=== PATIENT | female | born 1995 | race Caucasian/White ===

== ENCOUNTER → 2017-10-19 16:44 | Outpatient (CLI) | payer OTHER, SELFPAY ==
[2017-10-19 18:19] LABS: Progesterone Level 0.49 ng/mL (See Comment)
[2017-10-19 18:23] LABS: hCG Titer Quant., Serum < 1 mIU/mL (<9 non-preg)
[2017-10-19 20:38] LABS: Free T3 2.9 pg/mL (2.18-3.98); Luteinizing Hormone 10.9 mIU/mL; T4 Free Direct 1.08 ng/dL (0.76-1.46); Thyroid Stim Hormone (TSH) 0.51 uIU/mL (0.358-3.74)
== END ==
PROVIDERS: Family Provider Internal Medicine; PCP Internal Medicine; Visit Provider Internal Medicine
DX: N93.9 Abnormal uterine and vaginal bleeding, unspecified (principal)
CPT/HCPCS: 36415; 83001; 83002; 84144; 84439; 84443; 84481; 84702

== ENCOUNTER 2021-05-15 18:26 | Inpatient (IN) | payer OTHER, SELFPAY ==
[2021-05-15] VITALS (12 sets, daily range): BP systolic 128–146; BP diastolic 70–94; PULSE 79–94; TEMP 36.7–36.8; O2SAT 98; BMI 38.9
[2021-05-15 17:06] LABS: Hematocrit 33.4 % (37-47); Hemoglobin 11.6 g/dL (12.0-15.0); Mean Corp Hgb Conc 34.7 g/dL (32-36); Mean Corpuscular Hgb 29.9 pg (27.0-32.0); Mean Corpuscular Volume 86.1 fL (81-99); Mean Platelet Vol. 11.6 fl (6.2-12.0); Platelet Count 196 K/mm3 (150-450); RBC Distribution Width CV 12.8 % (11.6-14.6); RBC Distribution Width SD 39.5 fl (35.1-43.9); Red Blood Count 3.88 M/mm3 (4.2-5.4); White Blood Count 10.5 K/mm3 (4.4-11.0)
[2021-05-15 17:17] LABS: Protein:Creat Ratio 321 mg/g CRE (0-200)
[2021-05-15 17:36] LABS: AST(SGOT) 11 U/L (15-37); Alanine Aminotransfer ALT/SGPT 12 U/L (13-56); Creatinine, Serum 0.69 mg/dL (0.55-1.02); EST Glomerular Filtration Rate 109 mL/min (>60); Est Glom Filt Rate - Afr Amer 132 mL/min (>60); Estimated Creatinine Clearance 101.31 ml/min; Uric Acid 4.8 mg/dL (2.6-6.0)
--- NOTE | 2021-05-15 18:48 | PCM.HP.OB ---
HPI - General General Date of Admission: 05/15/21 HPI Narrative ADRIANA SEGUNDO, is a 26 F @ 40.1 wks who presents to evaluation of elevated BP in office- pt denies PORTER, visual changes or abdominal pain upon arrival. Maternal Data Information Final TRACY: 05/14/21 Final TRACY Source: US <20 weeks Gestational age: 40.1 PFSH PFSH Home Medications [id number] [] 1 tab PO DAILY 05/15/21 [History Last Taken 05/15/21 08:00 1 tab] Allergy/AdvReac Type Severity Reaction Status Date / Time No Known Allergies Allergy Verified 05/15/21 16:39 Social History Smoking Status: Never smoker NST FHR Rate Baby A Baseline: 125 Variability:: Moderate Accelerations:: 15 x 15 Decelerations:: None NST Reactive:: Yes FHR Category:: Category I Uterine Activity:: irregular (pt not feeling) Vital Signs Vital Signs Vital Signs: 05/15/21 16:32 05/15/21 17:00 05/15/21 17:10 Pulse Rate 84 83 94 Blood Pressure 146/94 H 136/79 H 128/77 H BP Systolic 146 136 128 BP Diastolic 94 79 77 05/15/21 17:19 05/15/21 17:30 05/15/21 17:40 Pulse Rate 82 82 82 Blood Pressure 138/84 H 136/88 H 139/82 H BP Systolic 138 136 139 BP Diastolic 84 88 82 05/15/21 17:49 Pulse Rate 87 Blood Pressure 140/85 H BP Systolic 140 BP Diastolic 85 Weight Weight: 99.8 kg Body Mass Index (BMI) 38.9 Physical Exam Narrative pt very upset when i was in room- emotional that she did not want to stay be induced- is concerned about possiblity of cs Const alert and oriented x3 Labs Labs Labs: Hct 33.4 % (37-47) L Hgb 11.6 g/dL (12.0-15.0) L Assessment & Plan (1) Preeclampsia: QUALIFIERS: Trimester: third trimester Qualified Code(s): O14.93 - Unspecified pre-eclampsia, third trimester (2) 40 weeks gestation of : PLAN: Admit to L&D Montior FHR/TOCO Epidural if requested for pain Monitor VS Anticipate cytotec - cervix in office was closed/thick No severe features- hold off on magnesium at this time- if severe range BP will start Labetalol HTN protocol and Magnesium
[2021-05-15] MEDS: Acetaminophen/Butalbital/Caffe 1 Tablet 2 TABLET PO (19:55)
[2021-05-15] MEDS: miSOPROStol 25 MCG TABLET PO (21:10)
[2021-05-16] VITALS (29 sets, daily range): BP systolic 116–141; BP diastolic 64–91; PULSE 68–105; TEMP 36.2–37.7; O2SAT 82–97
[2021-05-16] MEDS: miSOPROStol 25 MCG TABLET PO ×2 (03:00→09:13)
--- NOTE | 2021-05-16 08:21 | PCM.PN.BLA ---
Progress Note At bedside to check pt. Cvx closed but external os 0.5 cm now, soft, posterior. Will give 3rd dose of Cytotec and reassess in 4 hours. Will likely be able to place intracervical ferreira at that time and start pitocin.
[2021-05-16] MEDS: 0.9% Saline Lock 10 ML Syringe IV ×2 (12:44→18:57)
[2021-05-16] MEDS: Lactated Ringers 1,000 ML 50 ML IV (12:46)
--- NOTE | 2021-05-16 13:12 | PCM.PN.BLA ---
Progress Note At bedside to check on pt. She is comfortable and not feeling ctx's with the Cytotec. Cvx unchanged and unable to place intracervical ferreira. Will start pitocin.
[2021-05-16] MEDS: Oxytocin 30 units/NS 500 ml 30 UNITS/500 ML IV.SOLN IV (13:19)
[2021-05-16] MEDS: Lactated Ringers 500 ML 999 ML IV ×2 (15:35→21:14)
[2021-05-16] MEDS: Acetaminophen 500 MG Tablet PO (17:10)
[2021-05-16] MEDS: 0.9% Normal Saline Single 100 ML IV.SOLN. INTRA-UTER (17:40)
--- NOTE | 2021-05-16 17:45 | PCM.PN.BLA ---
Progress Note Patient is comfortable with ctxs Physical Exam Narrative cvx - /-3 fhts - 135 with mod variability, accels tocos - Q2-3 minutes Assessment & Plan Assessment/Plan (1) Preeclampsia: QUALIFIERS: Trimester: third trimester Qualified Code(s): O14.93 - Unspecified pre-eclampsia, third trimester PLAN: 40&2 Continue induction - intracervical ferreira placed & will continue pitocin BP's normal to minimal elevation Plan of care reviewed with patient
[2021-05-16] MEDS: Ondansetron 4 MG/2 ML Vial IV (18:57)
--- NOTE | 2021-05-16 19:50 | NURSING ---
nurse concerned about some of pts statements being made while being admitted to nurse and physician. Pt stating This baby has made me fat and ugly ,I don't want people to see me like this pt reassured by physician that she was beautiful and she will love being a momma. She made statement that I can't wait for this to be over so I can go home and lock myself in my bedroom with my dogs and someone else can care for baby, pt states I don't like stage, I didn't want to have a baby I want to foster or adopt older children Pt plans to bottle feed only and plans to have FOB get a vasectomy so she never gets again. pt given much needed support during admission .
[2021-05-16] MEDS: Lactated Ringers 1,000 ML 200 ML IV (22:32)
[2021-05-17] VITALS (75 sets, daily range): BP systolic 82–155; BP diastolic 37–96; PULSE 75–190; RESP 18–20; TEMP 36.6–39; O2SAT 80–100
[2021-05-17] MEDS: Lactated Ringers 1,000 ML 200 ML IV ×3 (03:45→17:54)
[2021-05-17] MEDS: Lactated Ringers 500 ML 999 ML IV ×3 (05:18→07:47)
[2021-05-17] MEDS: Ondansetron 4 MG/2 ML Vial IV (05:56)
[2021-05-17] MEDS: fentaNYL-bupivacaine (epidural) 100 ML BAG EPIDURAL ×3 (06:28→15:43)
[2021-05-17 09:18] LABS: Hematocrit 32.6 % (37-47); Hemoglobin 11.2 g/dL (12.0-15.0); Mean Corp Hgb Conc 34.4 g/dL (32-36); Mean Corpuscular Hgb 29.9 pg (27.0-32.0); Mean Corpuscular Volume 86.9 fL (81-99); Mean Platelet Vol. 11.6 fl (6.2-12.0); Platelet Count 177 K/mm3 (150-450); RBC Distribution Width CV 12.5 % (11.6-14.6); Red Blood Count 3.75 M/mm3 (4.2-5.4); White Blood Count 16.8 K/mm3 (4.4-11.0)
[2021-05-17 09:33] LABS: ALB/GLOB Ratio 0.8 RATIO (0.9-2.4); AST(SGOT) 9 U/L (15-37); Alanine Aminotransfer ALT/SGPT 10 U/L (13-56); Albumin, Serum 2.5 g/dL (3.2-5.0); Alkaline Phosphatase 153 U/L (45-117); Anion Gap 6 (5-15); BUN 6 mg/dL (7-18); BUN/Creat Ratio 8.1 RATIO (10-20); Chloride 110 mmol/L (98-107); Creatinine, Serum 0.74 mg/dL (0.55-1.02); EST Glomerular Filtration Rate 100 mL/min (>60); Est Glom Filt Rate - Afr Amer 121 mL/min (>60); Estimated Creatinine Clearance 94.46 ml/min; Globulin 3.3 g/dL (2.2-4.2); Glucose 93 mg/dL (74-106); Potassium 3.8 mmol/L (3.5-5.1); Protein, Total 5.8 g/dL (6.4-8.2); Sodium Level 139 mmol/L (136-145)
[2021-05-17] MEDS: Acetaminophen 500 MG Tablet PO (12:04)
--- NOTE | 2021-05-17 18:20 | PCM.PN.BLA ---
Progress Note Arrived to evaluate patient. She was complete and pushing in the head was plus 3 out of 5 station. Epidural was adequate. Carney catheter is in place. Estimated weight was less than 4500 g clinically and by ultrasound. Pelvis was clinically adequate to expect vaginal delivery. The fetus was in KIYA position. I discussed with the patient and her partner risk benefits and alternatives to attempted vacuum-assisted vaginal delivery. She was exhausted and been pushing for over 3 hours with minimal change in the past 1-1/2 hours. Their questions were answered and they desire to proceed. The team was assembled. The Kiwi vacuum was placed on the flexion point and 500 mmHg of pressure was created. With the next contraction I pulled with what appeared to be small amount of descent with maternal pushing efforts. On the next contraction and the second pull, there was a pop-off. At that point the head restituted back at plus 3 out of 5 station. At this point I discussed with the patient and her partner that I did not feel was indicated to attempt another pull since there have been no significant descent with adequate pushing effort and traction. Reviewed indication for section. Patient has suspected AAA with fever above 102, and persistent tachycardia and elevated white blood cell count. Triple antibiotics will be given preoperatively for antibiotic prophylaxis. Patient desired to proceed after her questions were answered.
[2021-05-17] MEDS: Sodium Citrate/Citric Acid 30 ML UDC PO (18:24)
[2021-05-17] MEDS: 0.9% Normal Saline 1,000 ML 999 ML IV (18:50)
--- NOTE | 2021-05-17 19:00 | PLAC_PTH ---
PATIENT: ADRIANA SEGUNDO LOC: [facility] U#:[id number] AGE/SX: 26/F ROOM: [facility]011 RE05/15/[address]: Dr. Vidhya Vazquez, MDDOB: 1995 BED: 1 DIS: 05/19/2021 SPEC #: [id number] RECD: 05/17/21 23:59 STATUS: VAZQUEZ PAUL #: [id number] CITLALY: 05/17/21 19:[address]: Vidhya Vazquez DEPT: SURGICAL PATHOLOGY RECD BY: Umm Ghosh ENTERED: 05/20/21 10:25 SP TYPE: PLACENTA OTHR DR: Dr. 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 trivascular with acute funisitis. Placental membranes ? acute chorioamnionitis and acute deciduitis. Placental disc ? remote infarct, Komal-Alireza change, increased intraparenchymal fibrin plaques and intervillous congestion. AM:cathy 05/22/2021 MICROSCOPIC DESCRIPTION Slides are reviewed. GROSS DESCRIPTION SPECIMEN: PLACENTA / CLINICAL INFORMATION: A. Weight: 3.145 kg B. Gestational Age: 40 weeks C. Sex: Female PLACENTAL WEIGHT (POST FIXATION): 526 gm PLACENTAL DIMENSIONS: 19 x 15 x 4 cm PLACENTAL SHAPE: Usual ovoid PLACENTAL WEIGHT FOR GESTATIONAL AGE: Within 10-99th percentile MEMBRANES - Present A. Insertion: Marginal B. Site of rupture from edge: 4 cm from edge of placental disc C. Color of membrane: Alba-hernández D. Abnormalities: None UMBILICAL CORD - Present A. Color: Alba-hernández B. Insertion: Central C. Length: 41 cm D. Diameter: 1.2 cm E. Number of vessels: Three F. Abnormalities: None PLACENTAL DISC - Present A. Color of surface: Alba-hernández B. surface abnormalities: None C. Maternal cotyledons: Intact with minimal tears D. Attached retro placental clot: No clot E. Cut surface: Dark red and spongy F. Lesions: Sections reveal a alba, indurated area measuring 2.5 cm in greatest dimension. G. Separate clot: Multiple blood clots are noted weighing 58 gm and measuring in aggregate 10 x 9 x 3?cm. SECTIONS SUBMITTED: 1. Membrane roll 2. Cord, maternal end 3. Cord, end 4. Placental disc, and maternal surfaces, lesion 5. Placental disc, and maternal surfaces 6. Placental disc, and maternal surfaces IVANIA:cathy 05/21/2021 TC:2 CPT: 96776
[2021-05-17] MEDS: Carboprost Tromethamine 250 MCG/ML Ampul IM (19:12)
--- NOTE | 2021-05-17 20:11 | OP.PCM_ITS ---
Assessment & Plan (1) 40 weeks gestation of : (2) Preeclampsia: QUALIFIERS: Trimester: third trimester Qualified Code(s): O14.93 - Unspecified pre-eclampsia, third trimester (3) Deep transverse arrest: (4) CPD (cephalo-pelvic disproportion): (5) Maternal fever affecting labor: Maternal Data Information Final TRACY: 05/14/21 Gestational age: 40 3/7 Details Operative Information Date of Procedure: 05/17/21 Pre-Operative Diagnosis: failed vacuum, arrest of descent, CPD, suspected triple I w/ maternal fever and tachycardia Post-Operative Diagnosis: same Classification: AMANDA Procedure Type: low transverse guidance services coordinator #1: Liseth Burns Type of Anesthesia: Epidural Anesthesiologist: Yandy Funes Special Medications: duramorph Antibiotic Given: Clindamycin 600mg IV x1 and Gentamicin 1.5mg/kg IV x1 (and ampicillin) Estimated Blood Loss: 1000 Fluids Replaced: 1000 Procedure Start Time: 18:59 Procedure Stop Time: 19:57 Time of Delivery: 19:06 Findings Description of Procedure: The patient was taken to the operating room. The pillow was inserted after the vaginal prep was done. It was inserted in the usual sterile fashion and inflated 180 cc. Digital palpation confirmed proper placement. She was prepped and draped in the dorsal supine position with a leftward tilt. A Pfannenstiel skin incision was made approximately 2 cm above the symphysis pubis and carried through to underlying layer fascia with the scalpel. The fascia was incised incised in the midline and extended laterally with the Becerra scissors. The fascia was dissected off the rectus muscles with blunt and sharp dissection. The rectus muscles were in the midline and the peritoneum was entered bluntly. The peritoneal incision was stretched and the bladder blade was placed. The uterine incision was made in a low transverse fashion with the scalpel and extended superiorly and inferiorly with blunt dissection. The amniotic membranes were ruptured bluntly and clear amniotic fluid returned. The 's head was brought to the incision in the flexed position and delivered with some difficulty. The remainder of the infant was delivered with gentle traction and fundal pressure in the standard fashion. The mouth and nares were bulb suctioned. The cord was clamped and cut as the infant was stimulated. Cord clamping was not delayed. The infant was handed off to the waiting nursing staff. The placenta was delivered with fundal massage and gentle traction in the standard fashion. The uterus was exteriorized and cleared of all clots and debris. The uterus had some mild atony without hemorrhage. A dose of Hemabate and fundal massage were initiated. The Pitocin was also running. The uterus then firmed up nicely. Was noted that there were bilateral cervical extensions. Both angles were secured. The uterine incision was closed with #1 Vicryl in a running locked fashion. A second layer of the same suture was used in an imbricating fashion. Several nqcoud-ze-brehe sutures were placed to obtain hemostasis and some uterine sinuses. The incision was examined and was found to be hemostatic. The uterus was placed back into the peritoneal cavity and there was some oozing from suture line. Mostly from the needle riggins. Pressure was held for 2 minutes. The bleeding was minimal at that point. Some Edie was placed in some Surgifoam was placed at the uterine angles.. The rectus muscles were examined and any bleeding was Bovie cauterized. The parietal peritoneum and rectus muscles were closed en bloc with an 0 Vicryl running suture. The surgical teams outer gloves were then changed. The rectus fascia was examined and any bleeding was Bovie cauterized and the rectus fascia was closed with loop PDS suture in a running standard fashion. The subcutaneous tissue was examining and any bleeding was Bovie cauterized. The subcutaneous tissue was reapproximated with 3-0 Vicryl suture. The skin was closed in a subcuticular fashion. I performed the entire procedure with assistance. All sponge, lap, and needle counts were correct. The patient was taken to her room for recovery in a stable condition. Presentation: Positive for Vertex Amniotic Membrane Rupture Type: Artificial Amniotic Fluid Description: Clear Placental Delivery Description: Expressed Placenta Disposition: Sent to Pathology Cord Vessel Description: 3 Vessels Cord Entanglement: None Cord Gases: ABG and VBG Infant A Gender: Female (Marren) (1 minute): 8 (5 minute): 9 Delayed Cord Clamping: No Complications Complications: none Admit VTE Documentation VTE Present on Admission: No VTE Mechan Device Prophylaxis: SCD's VTE Pharm Prophylaxis Ordered: Yes
[2021-05-17] MEDS: Oxytocin 30 units/NS 500 ml 30 UNITS/500 ML IV.SOLN 167 UNITS IV (20:15)
[2021-05-17] MEDS: 0.9% Saline Lock 10 ML Syringe IV (21:20)
[2021-05-17] MEDS: Ketorolac 30 MG/ML Syringe IV (21:20)
[2021-05-17] MEDS: Acetaminophen 500 MG Tablet 1000 MG PO (22:01)
[2021-05-17] MEDS: Lactated Ringers 1,000 ML 100 ML IV (23:32)
[2021-05-18] VITALS (14 sets, daily range): BP systolic 103–140; BP diastolic 70–86; PULSE 95–108; RESP 18–20; TEMP 36.4–37.7; O2SAT 96–99
[2021-05-18] MEDS: Ketorolac 30 MG/ML Syringe IV ×3 (02:43→14:56)
[2021-05-18] MEDS: 0.9% Saline Lock 10 ML Syringe IV ×4 (02:44→14:57)
[2021-05-18] MEDS: Cefazolin 1 GM/50 ML BAG IV ×2 (02:48→11:43)
[2021-05-18] MEDS: Acetaminophen 500 MG Tablet 1000 MG PO ×4 (02:52→22:12)
[2021-05-18 04:59] LABS: Hematocrit 29.4 % (37-47); Hemoglobin 9.7 g/dL (12.0-15.0); Mean Corpuscular Hgb 29.6 pg (27.0-32.0); Mean Corpuscular Volume 89.6 fL (81-99); Mean Platelet Vol. 11.1 fl (6.2-12.0); Platelet Count 175 K/mm3 (150-450); RBC Distribution Width CV 12.9 % (11.6-14.6); RBC Distribution Width SD 42.2 fl (35.1-43.9); Red Blood Count 3.28 M/mm3 (4.2-5.4); White Blood Count 16.8 K/mm3 (4.4-11.0)
[2021-05-18] MEDS: Enoxaparin 40 MG/0.4 ML Syringe SC (08:15)
[2021-05-18] MEDS: Senna/Docusate Sodium 1 Tablet PO (08:33)
--- NOTE | 2021-05-18 10:00 | PN.OBGYN_ITS ---
Subjective Subjective Pain well controlled. No nausea or vomiting. No headache or visual changes. Objective Data Objective Data Vital Signs: Vital Signs Temp Pulse Resp BP Pulse Ox 98.5 F 107 H 20 H 115/74 97 05/18/21 08:13 05/18/21 08:13 05/18/21 08:13 05/18/21 08:13 05/18/21 08:13 Oxygen Delivery Method Room Air Weight: 99.8 kg Body Mass Index (BMI) 38.9 Intake & Output: Intake and Output for Last 24 Hours 05/16/21 05/17/21 05/18/21 23:59 23:59 23:59 Intake Total 1698.43 / 1698.43 7363.16 / 7363.16 688.34 / 688.34 Output Total 2175 / 2175 950 / 950 Balance 1698.43 / 1698.43 5188.16 / 5188.16 -261.66 / -261.66 Lab / Micro Data Result Diagrams: 05/18/21 04:50 05/17/21 09:10 Labs: Laboratory Results - last 24 hr 05/17/21 20:55: Screen NEGATIVE, Baby's Blood Type A POSITIVE, Baby's ALMA POSITIVE 05/18/21 04:50: WBC 16.8 H, RBC 3.28 L, Hgb 9.7 L, Hct 29.4 L, MCV 89.6, MCH 29.6, MCHC 33.0, RDW Std Deviation 42.2, RDW Coeff of Gerry 12.9, Plt Count 175, MPV 11.1 Micro: Microbiology 05/15/21 22:55 Nasal Secretion SARS-CoV-2 Antigen (Rapid) - Final Physical Exam Const alert General Appearance: cooperative GI GI Narrative: soft, moderate distention, fundus firm, appropriately tender. Abdominal bandage clean dry and intact Assessment & Plan (1) Preeclampsia: QUALIFIERS: Trimester: third trimester Qualified Code(s): O14.93 - Unspecified pre-eclampsia, third trimester (2) delivery delivered: PLAN: Postoperative day #1. Patient is doing well. Acute blood loss anemia appropriate for blood loss during surgery. Recheck CBC tomorrow. Had suspected triple I with maternal fever, elevated white blood cell count, and fe monet tachycardia. Will receive 2 doses of postoperative antibiotics then if remains afebrile will discontinue the antibiotics. Her blood pressures are stable. Continue to monitor. is bottlefeeding and doing well.
--- NOTE | 2021-05-18 18:53 | NURSING ---
Done by JG Leija while in room evaluating - left on unit to enter into [facility]
[2021-05-18] MEDS: Ibuprofen 600 MG Tablet PO (20:03)
--- NOTE | 2021-05-18 21:21 | CASEMGMT ---
JG Note: SW met with patient and her in the room. Patient was sitting on the bed with the nb and patient was smiling and interacting with the nb. The fob was at the sink when this abstract writer came into the room. Patient gave this abstract writer permission to speak to her in the presence of the fob. Patient stated that she curled her hair today so she felt pretty. Patient said that she is anxious to take a shower. Patient was able to talk about the nb and stated that she agreed that the nb resembled her. Patient said that she is anxious to see if the nb has curly or straight hair. Pt completed PHQ2 with score of 0. Mom: Elisa G1 P PNC: [facility]: Silvia Perez Control: Vasectomy. Patient said that she was on control but had such bad moods so the plan is for the fob to have a vasectomy. Baby: Charla Cantrell- Patient told the story of how she and the fob had been together and high school but broke up and remained in contact. Patient said that fob had posted on [employer] the song Girl by Charla Khalil and she responded to that and they reconnected. Patient said that her mother's name is Tamia. : 05/17/21. EDC: 05/14/21 Patient said that the was not expected but indicated that she was happy. : 8/9 Weight: 7# 2 ounces Air Conditioning Technician: Hilda. Patient said that the nb's tailings dam laborer is not set in stone but stated I want a female doctor as when I was a child I did not like a male doctor. Bottle Feeding: Patient and FOB report that patient is eating well. MOB's Other children: None Housing: Patient reports she and the fob built a house 1 year ago in [facility]. FOB stated it has been 2 year that they built. Patient said that it will be fun to have the nb at the home. Patient, fob and nb will reside in the home with patient's 2 dogs. Patient reports that the one dog loves babies and has been playing with the nb's baby toys. Patient showed this abstract writer a video of the dog with nb's baby toy. Patient voiced to this abstract writer I was so proud of myself as I did laundry 1 day before going into labor. SW discussed that patient's expectation and that it is ok to let expectation not be met. 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 Transportation: Patient reports access to transportation. Supplies: Patient said that she everything for the nb. Patient confirmed she has diapers, clothes, bassinet and crib for the nb. Patient said my mom was so proud of how organized I was when I came to the hospital.. she said that she was not like that. Supports: Parents, , Huan's parents, sister and neighbor. Patient reports family and supports are within 15 minutes of their residence. Education Level: Patient graduated HS. No learning issues. FOB said she's smart. Patient said I didn't want to take out lots of loans.. I wanted to do banking. Employment: Patient is employed at [employer] and has been at her current job for 7 years. Patient said that she plans to take 12 weeks off. Patient said that she works from home. SW asked about caring for the nb when she returns to work. Patient said that her mother has stated she may retire and the FOB said that his mom works 4 out of 5 days a week so she has 1 day off during the week. Patient has been off of work since Thursday. Agency Involvement: Patient denied any HMG, WIC, JFS, Legal, CSB or counseling issues. SW offered that this abstract writer could make a HMG referral and she declined as she said that she would review the information. FOB: Huan, Time Together: Where together in high school and reconnected in December 2019. Involved at : Yes Employment: FOB works in outside sales advertising executive at [employer] in [place] [facility]. FOB said that he plans to take 1 week off work. The FOB said that he works from home except when he has sales appointments. No other children FOB MH/AOD and Domestic Violence: None Maternal MH History: Patient denied anxiety, depression, eating disorders or MH history. Patient reports no history of psychiatric medication. Patient denied any SI/HI, past or current. Patient denied any psychiatric hospitalization. Patient said that she has had concerns about Post Depression. Patient said that she and her work out together and now she realizes that due to her recovery they can't do intensive workout but I can walk. Patient said that she got upset when her electronics technology department chair told her to take her hair extensions out as they will fall out when you go into labor. Patient said that was upsetting to her and she said well, if my hair will fall out then the extensions will fall out. Patient said that she has been talking about her concerns to Silvia Chris and I cry everytime I talk to her because she is so nice and voiced that Silvia is a good support and someone that she feels she can speak to regarding her feelings and concerns. SW then reviewed the PHQ 9 and this abstract writer stated that this will help identify for patient and FOB triggers of depression. Patient scored a 1 on PHQ1 related to waking up frequently while sleeping but she attributed it to her . SW provided information about PHP program and the services they provide. Patient reports she has never smoked. Patient denied drug use. Patient denied alcohol use and when questioned about alcohol use she said well, maybe on a beach but then stated rarely. Patient and FOB were educated on Post depression, Shaken Baby and Safe Sleeping. SW provided handout on counseling agencies, 10 facts about depression and anxiety, depression, online resource for post mood and anxiety disorder, Post Support Warmline, HMG resource, Back to Sleep, [facility] Mom's of Newborns. SW also provided pamphlet on [facility] IOP/PHP. SW also discussed that this abstract writer works in the ED and staff in the ED is available 22/09 if mental health needs arise. JG updated Angeles, RN caring for the nb and [employer] wireless field technician. JG received call from [employer] in [facility] and she advised that they spoke to and the MD Stafford plans to keep patient and nb till Thursday due to their medical issues. Plan: Home at discharge. As patient is being discharge on Thursday the [facility] SW on Thursday. JG will send email to Jessica Moss regarding this contact. Liss CANAS
[2021-05-19] VITALS (7 sets, daily range): BP systolic 136–150; BP diastolic 80–96; PULSE 80–94; RESP 18–20; TEMP 36.5–37; O2SAT 97–98
[2021-05-19] MEDS: Acetaminophen 500 MG Tablet 1000 MG PO ×2 (02:56→09:49)
[2021-05-19] MEDS: Ibuprofen 600 MG Tablet PO ×2 (02:56→09:48)
--- NOTE | 2021-05-19 06:01 | NURSING ---
late entry charting due to pt care and unit acuity, Yuly Breaux RN given report and assuming care of pt at 2135 on 05/18/21
[2021-05-19 06:50] LABS: Absolute Lymphocyte Count 1.71 X10^3/uL (0.83-4.51); Absolute Neutrophil Count 9.5 X10^3/uL (2.0-7.7); Basophil# 0.03 X10^3/uL; Basophil% 0.2 % (0-1); Eosinophil# 0.11 X10^3/uL; Eosinophils% 0.9 % (0-5); Hemoglobin 8.1 g/dL (12.0-15.0); Lymphocyte # 1.71 X10^3/ul (0.83-4.51); Lymphocyte % 14.1 % (19-41); Mean Corp Hgb Conc 33.8 g/dL (32-36); Mean Corpuscular Volume 88.9 fL (81-99); Mean Platelet Vol. 11.2 fl (6.2-12.0); Monocyte# 0.66 X10^3/uL; Monocyte% 5.5 % (0-10); NRBC Flagged by Analyzer 0 % (0-5); Neutrophil % 78.6 % (47-70); Platelet Count 162 K/mm3 (150-450); RBC Distribution Width CV 13.2 % (11.6-14.6); RBC Distribution Width SD 41.9 fl (35.1-43.9); White Blood Count 12.1 K/mm3 (4.4-11.0)
[2021-05-19] MEDS: Enoxaparin 40 MG/0.4 ML Syringe SC (09:49)
--- NOTE | 2021-05-19 11:08 | PCM.PN.OB ---
Subjective Subjective Pain well controlled. Average lochia. Feels like edema is getting better. Denies headache or visual changes. Patient is tearful as she really wants to go home today. Denies fevers or chills, shortness of breath or cough. Is passing flatus but no bowel movement yet. Eating regular diet and ambulating without difficulty. is doing well. Objective Data Objective Data Vital Signs: Vital Signs Temp Pulse Resp BP Pulse Ox 97.7 F L 93 18 136/81 H 98 05/19/21 08:09 05/19/21 08:09 05/19/21 08:09 05/19/21 08:09 05/19/21 08:09 Oxygen Delivery Method Room Air Weight: 99.8 kg Body Mass Index (BMI) 38.9 Intake & Output: Intake and Output for Last 24 Hours 05/17/21 05/18/21 05/19/21 23:59 23:59 23:59 Intake Total 7363.16 / 7363.16 738.34 / 738.34 Output Total 2175 / 2175 950 / 950 Balance 5188.16 / 5188.16 -211.66 / -211.66 Lab / Micro Data Result Diagrams: 05/19/21 06:10 05/17/21 09:10 Labs: Laboratory Results - last 24 hr 05/19/21 06:10: WBC 12.1 H, RBC 2.70 L, Hgb 8.1 L, Hct 24.0 L, MCV 88.9, MCH 30.0, MCHC 33.8, RDW Std Deviation 41.9, RDW Coeff of Gerry 13.2, Plt Count 162, MPV 11.2, Immature Gran % (Auto) 0.700, Neut % (Auto) 78.6 H, Lymph % (Auto) 14.1 L, Chippewa % (Auto) 5.5, Eos % (Auto) 0.9, Baso % (Auto) 0.2, Absolute Neuts (auto) 9.5 H, Absolute Lymphs (auto) 1.71, Nucleated RBC % 0 Micro: Microbiology 05/15/21 22:55 Nasal Secretion SARS-CoV-2 Antigen (Rapid) - Final Physical Exam Const alert General Appearance: cooperative GI GI Narrative: soft, moderate distention, fundus firm, appropriately tender. Abdominal bandage clean dry and intact Assessment & Plan (1) delivery delivered: PLAN: Postoperative day #2 status post primary section. is doing well and cleared for discharge. Patient had preeclampsia, blood pressures are stable. Also had suspected triple eye with maternal fever. White blood cell count is trending down. Patient remains afebrile for over 24 hours. I discussed with the patient and her that I strongly recommend that they stay until day #3 because of the preeclampsia and the fever. Patient is tearful. States she will monitor blood pressure at home. Very anxious about leaving. Discussed with the patient that even if she stays another day I cannot guarantee that she will not be readmitted for preeclampsia and/or infection. After our discussion and extensive counseling patient and her desire discharge home today with routine instructions. They do have a blood pressure cuff to monitor blood pressure. They are instructed to call or return if any severe range pressures or symptoms of preeclampsia.
--- NOTE | 2021-05-19 11:14 | PCM.DC.SUM ---
Providers Date of Admission: 05/15/21 Primary Care Physician: Dr. Zo Ponce DO Reason For Visit: INDUCTION FOR PRE ECLAMPSIA Diagnosis Discharge Diagnosis (1) Deep transverse arrest: Status: Acute Code(s): O64.0XX0 - Obstructed labor due to incomplete rotation of head, not applicable or unspecified (2) Preeclampsia: Status: Acute Code(s): O14.90 - Unspecified pre-eclampsia, unspecified trimester Qualifiers: Trimester: third trimester Qualified Code(s): O14.93 - Unspecified pre-eclampsia, third trimester (3) 40 weeks gestation of : Status: Acute Code(s): Z3A.40 - 40 weeks gestation of (4) delivery delivered: Status: Acute Code(s): O82 - Encounter for delivery without indication (5) Maternal fever affecting labor: Status: Acute Code(s): O75.2 - Pyrexia during labor, not elsewhere classified (6) CPD (cephalo-pelvic disproportion): Status: Acute Code(s): O33.9 - Maternal care for disproportion, unspecified (7) Delivery outcome of liveborn infant: Status: Acute Code(s): Z37.9 - Outcome of delivery, unspecified Medications at Discharge Home Medications [id number] 1 tab PO DAILY 05/15/21 ibuprofen 600 mg PO Q6H PRN 15 Days #60 tablet 05/19/21 Hospital Course Operations - (Primary low transverse section on 05/17/2021) Summary of Care Provided Hospital Course: Elisa is a 26-year-old 1 female who is admitted for induction of labor due to preeclampsia without severe features. She underwent Cytotec, then Carney, then Pitocin induction of labor. She had a maternal fever, elevated white blood cell count, and persistent tachycardia consistent with suspected AAA. She underwent attempted vacuum assisted vaginal delivery which was unsuccessful after 1 pop-off, the attempt was aborted. She then underwent primary section. Calculated estimated blood loss by postoperative day #2 was 1100 cc. Blood count trended down slightly after delivery. She did have some lateral extensions on the uterus and some oozing from the needle riggins on the uterus. The trend down is not surprising. However, the patient was tolerating the acute blood loss anemia well. By postoperative day #2 she was counseled that she was recommended to stay 3 days because of preeclampsia and the suspected AAA. However after expect sense of counseling the patient and her elected to be discharged home understanding the increased risks associated with this. They are to follow-up in the office in 2 to 5 days or as needed. She is can monitor her blood pressure at home and call or return if any severe range pressures or symptoms of preeclampsia. She will call or return if maternal fever as well. Weight / BMI Weight Weight: 99.8 kg Body Mass Index (BMI) 38.9 ABG / Lab / Microbiology Data Result Diagrams: 05/19/21 06:10 05/17/21 09:10 Laboratory: Laboratory Results - last 24 hr 05/19/21 06:10: WBC 12.1 H, RBC 2.70 L, Hgb 8.1 L, Hct 24.0 L, MCV 88.9, MCH 30.0, MCHC 33.8, RDW Std Deviation 41.9, RDW Coeff of Gerry 13.2, Plt Count 162, MPV 11.2, Immature Gran % (Auto) 0.700, Neut % (Auto) 78.6 H, Lymph % (Auto) 14.1 L, [place] % (Auto) 5.5, Eos % (Auto) 0.9, Baso % (Auto) 0.2, Absolute Neuts (auto) 9.5 H, Absolute Lymphs (auto) 1.71, Nucleated RBC % 0 Microbiology: Microbiology 05/15/21 22:55 Nasal Secretion SARS-CoV-2 Antigen (Rapid) - Final D/C Instructions Discharge Diet: No restrictions May resume sexual activity in: 4-6 weeks Lifting Restrictions: 20 pounds Additional Activity Instructions: Nothing in the vagina for 4-6 weeks. You may return to work/school in 6 weeks. Call your doctor if your incision/area has: Continuous Slow Oozing, Sudden Increased Bleeding, Increased Pain/ Swelling, Increased Redness and Foul Smelling Discharge Call your doctor if you observe: Fever of 101 or Higher and Using more than 1 pad per hour (for 2 hours) Suture Line Care: Avoid Pulling/Pushing and Avoid Pinching/Bending Cleanse incision/area with: Keep Dressing Clean & Dry Please Follow Up With: Joelle Stafford MD When: Call to make an appointment for an incision check in 1-2 [phone]. You will need a post check in 6 weeks. Meaningful Use Info Meaningful Use Diagnoses (Choose all that apply): None applicable Discharge Plan Admission Admit Date/Time: 05/15/21 18:26 Primary Reason for Your Visit: Induction of labor for preeclampsia, delivery Attending Provider: Vidhya Vazquez Primary Care Provider: Zo Ponce Discharge Orders/Prescriptions Prescriptions: New ibuprofen [ibuprofen] 600 MG tablet 600 mg PO Q6H PRN (Reason: Pain) 15 Days Qty: 60 RF: 1 Continued [id number] 1 mg Tablet 1 tab PO DAILY RF: 0 Referrals / Follow Up: Zo Ponce DO [Primary Care Provider] - Disposition Disposition (needs filled in before D/C Order can be placed): Home, Self Care
[2021-05-23 09:59] LABS: Pathology Specimen OB SEE PATHOLOGY REPORT
== END 2021-05-19 14:06 | disposition home or self-care (01) | DRG 787 ==
LOC: WPOUT 18:30 → WP 05-16 08:30
PROVIDERS: Obstetrics & Gynecology; Admitting Provider Obstetrics & Gynecology; PCP Internal Medicine; Visit Provider Obstetrics & Gynecology
DX: O14.94 Unspecified pre-eclampsia, complicating childbirth (principal); O75.2 Pyrexia during labor, not elsewhere classified; O64.0XX0 Obstructed labor due to incomplete rotation of fetal head, not applicable or unspecified; O48.0 Post-term pregnancy; Z20.822 Contact with and (suspected) exposure to COVID-19; O66.5 Attempted application of vacuum extractor and forceps; O65.4 Obstructed labor due to fetopelvic disproportion, unspecified; O75.89 Other specified complications of labor and delivery; O76 Abnormality in fetal heart rate and rhythm complicating labor and delivery; O75.81 Maternal exhaustion complicating labor and delivery; Z3A.40 40 weeks gestation of pregnancy; Z37.0 Single live birth; Z3A.39 39 weeks gestation of pregnancy
CPT/HCPCS: 36415; 59025; 59050; 80053; 82565; 82570; 84156; 84450; 84460; 84550; 85025; 85027; 85461; 86850; 86900; 86901; 87426; 88307; 90384; 99218; 99251; J7030; J7120; A4216; G0378; G0463; J2405; J2790